=== PATIENT | female | born 1990 | race Caucasian/White ===

== ENCOUNTER 2017-08-04 08:51 | Emergency (ER) | payer OTHER ==
[2017-08-04] MEDS ORDERED: METOCLOPRAMIDE 5 MG/ML 2 ML VIAL IVP STA (09:14)
[2017-08-04] MEDS ORDERED: SODIUM CHLORIDE 0.9% 1,000 ML IV STA (09:14)
--- NOTE | 2017-08-04 09:27 | ED ---
General Adult HPI - General Chief complaint: Abdominal Pain Stated complaint: Right Side Pain, Vomiting Time Seen by Provider: 08/04/17 08:58 Source: patient, RN notes reviewed Mode of arrival: ambulatory Limitations: no limitations - History of Present Illness Initial comments: 26-year-old female presents emergency department with a chief complaint of right sided abdominal pain. Patient states she gets these sharp pains to the right side of her abdomen just randomly for the last week or so. Now she started to have nausea vomiting and some diarrhea. Patient states sometimes the pain will radiate up into her chest. Patient denies any back pain. There is been no fever chills that she is aware of. She denies any surgeries to the abdomen besides C-sections. Patient was concerned due to her continued discomfort so she thought that she should be evaluated. Patient denies any recent fever, chills, shortness of breath, chest pain, back pain, numbness or tingling, dysuria or hematuria, constipation or diarrhea, headaches or visual changes, or any other current symptoms. - Related Data Previous Rx's Medication Instructions Recorded Ondansetron Odt [Zofran ODT] 4 mg PO Q8HR PRN #20 tab 08/04/17 Allergies Allergy/AdvReac Type Severity Reaction Status Date / Time No Known Allergies Allergy Verified 08/04/17 08:57 Review of Systems ROS Statement: Those systems with pertinent positive or pertinent negative responses have been documented in the HPI. ROS Other: All systems not noted in ROS Statement are negative. Past Medical History Past Medical History: No Reported History Additional Past Medical History / Comment(s): Gest Diabetes History of Any Multi-Drug Resistant Organisms: None Reported Past Surgical History: Section Additional Past Surgical History / Comment(s): iud removal, LAPAROSCOPY AND RUPTURED UTERUS WITH REPAIR Past Anesthesia/Blood Transfusion Reactions: No Reported Reaction Past Psychological History: No Psychological Hx Reported Smoking Status: Never smoker Past Alcohol Use History: None Reported Past Drug Use History: None Reported General Exam - General Exam Comments Initial Comments: General: The patient is awake and alert, in no distress, and does not appear acutely ill. Eye: Pupils are equal, round and reactive to light, extra-ocular movements are intact; there is normal conjunctiva bilaterally. No signs of icterus. Ears, nose, mouth and throat: There are moist mucous membranes and no oral lesions. Neck: The neck is supple, there is no tenderness. Cardiovascular: There is a regular rate and rhythm. No murmur, rub or gallop is appreciated. Respiratory: Lungs are clear to auscultation, respirations are non-labored, breath sounds are equal. No wheezes, stridor, rales, or rhonchi. Gastrointestinal: Soft, non-distended, right-sided tenderness in the upper quadrant of the abdomen without masses or organomegaly noted. There is no rebound or guarding present. No CVA tenderness. Bowel sounds are unremarkable. Back: There is no tenderness to palpation in the midline. There is no obvious deformity. No rashes noted. Musculoskeletal: Normal ROM, no tenderness, There is no pedal edema. There is no calf tenderness or swelling. Sensation intact. Pulses equal bilaterally 2+. Neurological: CN II-XII intact, There are no obvious motor or sensory deficits. Coordination appears grossly intact. Speech is normal. Skin: Skin is warm and dry and no rashes or lesions are noted. Psychiatric: Cooperative, appropriate mood & affect, normal judgment. Limitations: no limitations Course Vital Signs 08/04/17 08/04/17 08:54 11:00 Temperature 99.2 F Pulse Rate 105 H 88 Respiratory 18 20 Rate Blood Pressure 130/78 117/57 O2 Sat by Pulse 100 99 Oximetry Medical Decision Making - Medical Decision Making 19-year-old female presents with right upper quadrant abdominal pain. This time ultrasound of the gallbladder and CAT scan are negative. At this time we discussed patient possibility etiologies for the symptoms. We did discuss that this could worsen and to return to this time we will discharge the patient home. We did discuss return parameters all patient's questions. He stated the Vinnie they're in agreement plan. They will be discharged - Lab Data Result diagrams: 08/04/17 09:08/04/17 09:09 Lab Results 08/04/17 08/04/17 08/04/17 Range/Units 09:09 09:09 09:35 WBC 15.1 H (3.8-10.6) k/uL RBC 4.87 (3.80-5.40) m/uL Hgb 14.5 (11.4-16.0) gm/dL Hct 40.5 (34.0-46.0) % MCV 83.2 (80.0-100.0) fL MCH 29.8 (25.0-35.0) pg MCHC 35.9 (31.0-37.0) g/dL RDW 12.3 (11.5-15.5) % Plt Count 418 (150-450) k/uL Neutrophils % 85 % Lymphocytes % 11 % Monocytes % 3 % Eosinophils % 0 % Basophils % 0 % Neutrophils # 12.8 H (1.3-7.7) k/uL Lymphocytes # 1.7 (1.0-4.8) k/uL Monocytes # 0.4 (0-1.0) k/uL Eosinophils # 0.1 (0-0.7) k/uL Basophils # 0.1 (0-0.2) k/uL Sodium 140 (137-145) mmol/L Potassium 4.3 (3.5-5.1) mmol/L Chloride 105 (98-107) mmol/L Carbon Dioxide 24 (22-30) mmol/L Anion Gap 11 mmol/L BUN 11 (7-17) mg/dL Creatinine 0.76 (0.52-1.04) mg/dL Est GFR (MDRD) Af Amer >60 (>60 ml/min/1.73 sqM) Est GFR (MDRD) Non-Af >60 (>60 ml/min/1.73 sqM) Glucose 90 (74-99) mg/dL Calcium 9.8 (8.4-10.2) mg/dL Total Bilirubin 0.6 (0.2-1.3) mg/dL AST 28 (14-36) U/L ALT 29 (9-52) U/L Alkaline Phosphatase 34 L (38-126) U/L Total Protein 7.7 (6.3-8.2) g/dL Albumin 5.0 (3.5-5.0) g/dL Amylase 64 (30-110) U/L Lipase 39 (23-300) U/L Urine Color Colorless Urine Appearance Clear (Clear) Urine pH 7.5 (5.0-8.0) Ur Specific [place] 1.004 (1.001-1.035) Urine Protein Negative (Negative) Urine Glucose (UA) Negative (Negative) Urine Ketones Negative (Negative) Urine Blood Negative (Negative) Urine Nitrite Negative (Negative) Urine Bilirubin Negative (Negative) Urine Urobilinogen <2.0 (<2.0) mg/dL Ur Leukocyte Esterase Negative (Negative) - Radiology Data Radiology results: report reviewed, image reviewed Disposition Clinical Impression: Abdominal pain Disposition: HOME SELF-CARE Condition: Stable Instructions: Abdominal Pain (ED) Additional Instructions: Please use medication as discussed. Please follow up with family doctor if symptoms have not improved over the next two days. Please return to the emergency room if your symptoms increase or worsen or for any other concerns. Prescriptions: Ondansetron Odt [Zofran ODT] 4 mg PO Q8HR PRN #20 tab PRN Reason: Nausea Referrals: Garrett Hess MD [Primary Care Provider] - 1-2 days Time of Disposition: 12:31
[2017-08-04 09:31] LABS: Basophils # (A) 0.1 k/uL (0-0.2); Basophils % (A) 0 %; CH 30.4; CHCM 36.7; Eosinophils # (A) 0.1 k/uL (0-0.7); Eosinophils % (A) 0 %; HCT 40.5 % (34.0-46.0); HGB 14.5 gm/dL (11.4-16.0); Luc # (Auto) 0.09; Luc % (Auto) 1; Lymphocytes # (A) 1.7 k/uL (1.0-4.8); Lymphocytes % (A) 11 %; MCH 29.8 pg (25.0-35.0); MCHC 35.9 g/dL (31.0-37.0); MCV 83.2 fL (80.0-100.0); Mean Platelet Volume 6.6; Monocytes # (A) 0.4 k/uL (0-1.0); Monocytes % (A) 3 %; Neutrophils # (A) 12.8 k/uL (1.3-7.7); Neutrophils % (A) 85 %; RBC 4.87 m/uL (3.80-5.40); RDW 12.3 % (11.5-15.5); WBC 15.1 k/uL (3.8-10.6); WBC (Perox) 15.09
[2017-08-04 09:36] LABS: ALT 29 U/L (9-52); AST 28 U/L (14-36); Alkaline Phosphatase 34 U/L (38-126); Amylase 64 U/L (30-110); Anion Gap 11 mmol/L; Blood Urea Nitrogen 11 mg/dL (7-17); Calcium 9.8 mg/dL (8.4-10.2); Carbon Dioxide 24 mmol/L (22-30); Chloride 105 mmol/L (98-107); Glucose 90 mg/dL (74-99); Non-African American GFR(MDRD) >60 (>60 ml/min/1.73 sqM); Potassium 4.3 mmol/L (3.5-5.1); Sodium 140 mmol/L (137-145); Total Bilirubin 0.6 mg/dL (0.2-1.3); Total Protein 7.7 g/dL (6.3-8.2)
[2017-08-04 10:17] LABS: Appearance,Urine Clear (Clear); Bilirubin,Urine Negative (Negative); Glucose,Urine (UA) Negative (Negative); Ketones,Urine Negative (Negative); Leukocyte Esterase,Urine Negative (Negative); Nitrite,Urine Negative (Negative); PH, Urine 7.5 (5.0-8.0); Protein,Urine Negative (Negative); Specific Gravity,Urine 1.004 (1.001-1.035); UA Billing (MACRO vs. MICRO) CHEM; Urobilinogen,Urine <2.0 mg/dL (<2.0)
--- NOTE | 2017-08-04 10:23 | XR ---
EXAMINATION TYPE: XR abdomen 2V , 2 VIEWS DATE OF EXAM ORDERED: 08/04/2017 HISTORY: Pain. COMPARISON: None. FINDINGS: There is a levoscoliosis in the lumbar spine. The abdominal gas pattern is within normal limits. There is no evidence of obstruction or free air. T here are phleboliths in the pelvis. There has been a previous tubal ligation. IMPRESSION: NO ACUTE INTRA-ABDOMINAL ABNORMALITY.
--- NOTE | 2017-08-04 10:40 | US ---
EXAMINATION TYPE: US gallbladder DATE OF EXAM: 08/04/2017 COMPARISON: Previous study dated 05/12/2016 CLINICAL HISTORY: RUQ Pain intermittent for approximately 1 week with new onset of n/v/d. EXAM MEASUREMENTS: Liver Length: 16.1 cm Gallbladder Wall: 0.2 cm CBD: 0.3 cm Right Kidney: 10.2 x 3.4 x 5.5 cm Limited due to bowel gas. Pancreas: wnl Liver: wnl Gallbladder: wnl Evidence for sonographic Bush's sign: No CBD: wnl Right Kidney: wnl The pancreas is unremarkable. The liver is normal in size without biliary dilatation. The gallbladder is normal without cholelithiasis. The gallbladder wall measures 2 mm. The distal comm on hepatic duct measures 3 mm. Right kidney is normal. IMPRESSION: NORMAL RIGHT UPPER QUADRANT ULTRASOUND.
[2017-08-04] MEDS ORDERED: RX INFO: IV CONTRAST WAS GIVEN 1 EACH MISC MISCELLANE PRN (10:43)
[2017-08-04 11:24] VITALS: RESP 20
--- NOTE | 2017-08-04 12:06 | CT ---
EXAMINATION TYPE: CT abdomen pelvis w con DATE OF EXAM: 08/04/2017 REFERENCE: NONE HISTORY: Pain HISTORY: Right sided abdominal pain, vomiting REFERENCE: Previous study dated 11/08/2013. CT DLP: 336.60 mGy Automated exposure control for dose reduction was used. TECHNIQUE: Helical acquisition through the abdomen and pelvis was obtained following the oral ingesti on of without Oral Contrast and following intravenous administration of 100 ml mL of Omnipaque 300. T he data was reformatted in axial, coronal and sagittal projections. FINDINGS: Visualized portions of the lungs are clear. There is no pleural or pericardial fluid. The heart is not enlarged. Within the abdomen, the liver, spleen and gallbladder are normal. Both adrenal glands are normal. Both kidneys demonstrate function and appear morphologically normal. The pancreas appears unremarkable. There is no significant retroperitoneal, iliac or inguinal adenopathy. Tubal ligation clips are in place. There is follicular change in both ovaries. The endometrial stripe measures 11.5 mm. There is no significant diverticular change and there is no evidence of diverticulitis. The appendix is normal. Small bowel loops are normal. No free air is seen. There is a scant amount of free fluid within the pelvis. There is a unilateral left-sided spondylolysis at L5 without significant spondylolisthesis of L5 on S 1. IMPRESSION: 1. NO ACUTE INFLAMMATORY ABNORMALITY. 2. NORMAL APPENDIX. 3. UNILATERAL LEFT-SIDED SPONDYLOLYSIS AT L5 WITHOUT SIGNIFICANT SPONDYLOLISTHESIS.
[2017-08-04 12:42] VITALS: BP 115/54; PULSE 81; TEMP 99.1
== END 2017-08-04 12:42 | disposition home or self-care (01) ==
LOC: EC 08:51
DX: R10.11 Right upper quadrant pain (principal); R11.2 Nausea with vomiting, unspecified; R19.7 Diarrhea, unspecified
CPT/HCPCS: 36415; 80053; 82150; 83690; 85025; 81003; 74020; 76705; 74177; 99284; 96374; 96361; J2765; Q9967

== ENCOUNTER → 2018-04-08 | Outpatient (CLI) | payer BC ==
--- NOTE | 2018-04-09 08:04 | EST ---
EXERCISE STRESS DATE OF SERVICE: 04/08/2018 AGE: 27 SEX: Female HT: 61" WT: 116 pounds PROTOCOL: Warren STAGE: IV DURATION OF EXERCISE: 13 minutes HEART RATE REST: 90 BLOOD PRESSURE REST: 137/92 MAXIMUM HEART RATE ACHIEVED: 186 MAXIMUM BLOOD PRESSURE: 151/79 85% MPHR: 163 100% MPHR: 192 METS: 13.5 INDICATION OF THE STUDY: Chest pain. CLINICAL INFORMATION: STRESS DATA: Pretesting physical examination showed a heart rate of 90, pressure is 137/92 mmHg. Baseline EKG showed sinus mechanism. The patient exercised on the treadmill according to Warren protocol for a total of 13 minutes and achieved 13.5 METs. Max heart rate was 186, which is about 96% of maximum predicted heart rate. Maximum blood pressure was 151/79 mmHg. Clinically, patient did not have any symptoms of chest pain or discomfort during the testing or in the recovery and the EKG did not show any significant ST or T-wave abnormalities consistent with ischemia. CONCLUSIONS: 1. Excellent exercise capacity. 2. Normal EKG in response to exercise. 3. Normal stress test for the patient. MMODL / IJN: [id number] /
== END | disposition home or self-care (01) ==
LOC: RADNMMAIN 11:03
PROVIDERS: ATTEND Family Medicine
DX: R00.2 Palpitations (principal)
CPT/HCPCS: 93017

== ENCOUNTER 2018-08-17 12:26 | Emergency (ER) | payer BC ==
[2018-08-17 12:39] VITALS: RESP 16
[2018-08-17] MEDS ORDERED: ACETAMINOPHEN TAB 500 MG TAB PO STA (12:58)
[2018-08-17] MEDS ORDERED: CYCLOBENZAPRINE 10 MG TAB PO STA (12:58)
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
[2018-08-17 15:01] VITALS: BP 126/60; PULSE 73; TEMP 98.9
== END 2018-08-17 15:01 | disposition home or self-care (01) ==
LOC: EC 12:26
DX: S16.1XXA Strain of muscle, fascia and tendon at neck level, initial encounter (principal); R07.89 Other chest pain; V43.52XA Car driver injured in collision with other type car in traffic accident, initial encounter; Y92.410 Unspecified street and highway as the place of occurrence of the external cause
CPT/HCPCS: 70450; 71045; 72125; 99285

== ENCOUNTER 2019-06-13 14:11 | Emergency (ER) | payer BC, OTHER ==
[2019-06-13 14:39] VITALS: RESP 18; TEMP 98.6
[2019-06-13] MEDS ORDERED: SODIUM CHLORIDE 0.9% 2,000 ML IV STA (14:47)
[2019-06-13 15:20] VITALS: PULSE 66
--- NOTE | 2019-06-13 15:25 | ED ---
Abdominal Pain HPI - General Chief Complaint: Abdominal Pain Stated Complaint: Abd pain/vomiting Time Seen by Provider: 06/13/19 14:44 Source: patient, RN notes reviewed, old records reviewed Mode of arrival: ambulatory Limitations: no limitations - History of Present Illness Initial Comments: Is a 28-year-old female presents emergency department today with 3 days of nausea and vomiting. She denies any bloody stools. She states her body hurts and she feels as if she is dehydrated. Patient states that she has had no specific abdominal pain. Denies any history of sick contacts. Patient states that she thinks that she has a "stomach bug." Patient denies any recent fever, chills, shortness of breath, chest pain, back pain, abdominal pain, numbness or tingling, dysuria or hematuria, constipation or diarrhea, headaches or visual changes, or any other current symptoms - Related Data Previous Rx's Medication Instructions Recorded Ondansetron Odt [Zofran ODT] 4 mg PO Q8HR PRN #20 tab 08/04/17 Cyclobenzaprine [Flexeril] 10 mg PO TID #10 tab 08/17/18 Metoclopramide [Reglan] 10 mg PO TID #15 tab 06/13/19 Allergies Allergy/AdvReac Type Severity Reaction Status Date / Time No Known Allergies Allergy Verified 06/13/19 14:36 Review of Systems ROS Statement: Those systems with pertinent positive or pertinent negative responses have been documented in the HPI. ROS Other: All systems not noted in ROS Statement are negative. Past Medical History Past Medical History: No Reported History Additional Past Medical History / Comment(s): Gest Diabetes History of Any Multi-Drug Resistant Organisms: None Reported Past Surgical History: Section Additional Past Surgical History / Comment(s): iud removal, LAPAROSCOPY AND RUPTURED UTERUS WITH REPAIR Past Anesthesia/Blood Transfusion Reactions: No Reported Reaction Past Psychological History: No Psychological Hx Reported Smoking Status: Never smoker Past Alcohol Use History: None Reported Past Drug Use History: None Reported General Exam - General Exam Comments Initial Comments: Pleasant 28-year-old female. Alert and oriented 3. No significant distress. Limitations: no limitations General appearance: alert, in no apparent distress Head exam: Present: atraumatic, normocephalic, normal inspection Eye exam: Present: normal appearance, PERRL, EOMI. Absent: scleral icterus, conjunctival injection, periorbital swelling ENT exam: Present: normal exam, mucous membranes moist Neck exam: Present: normal inspection Respiratory exam: Present: normal lung sounds bilaterally. Absent: respiratory distress, wheezes, rales, rhonchi, stridor Cardiovascular Exam: Absent: normal rhythm GI/Abdominal exam: Present: soft, normal bowel sounds. Absent: distended, tenderness, guarding, rebound, rigid Extremities exam: Present: normal inspection, full ROM, normal capillary refill. Absent: tenderness, pedal edema, joint swelling, calf tenderness Back exam: Present: normal inspection Neurological exam: Present: alert, oriented X3, CN II-XII intact Course Vital Signs 06/13/19 06/13/19 06/13/19 14:36 15:15 16:31 Temperature 98.6 F Pulse Rate 93 66 66 Respiratory 18 18 18 Rate Blood Pressure 105/73 110/71 107/65 O2 Sat by Pulse 98 99 99 Oximetry 06/13/19 17:04 Temperature 98.6 F Pulse Rate 66 Respiratory 18 Rate Blood Pressure 122/85 O2 Sat by Pulse 99 Oximetry Medical Decision Making - Medical Decision Making 28-year-old female presents with 32 days of nausea and vomiting started for dehydration. Patient is given IV fluids, 2 L bolus. Patient's states she does feel better on reevaluation. Patient's labs were reviewed and unremarkable. KUB shows normal Bowel gas pattern. Patient advised likely viral gastroenteritis. I discussed to return if she had any fever or specific areas of abdominal pain. Patient received treatment plan will comply. Return parameters were discussed. - Lab Data Result diagrams: 06/13/19 15:15 06/13/19 15:15 Lab Results 06/13/19 06/13/19 06/13/19 Range/Units 15:15 15:15 15:15 WBC 5.2 (3.8-10.6) k/uL RBC 4.67 (3.80-5.40) m/uL Hgb 14.1 (11.4-16.0) gm/dL Hct 39.9 (34.0-46.0) % MCV 85.4 (80.0-100.0) fL MCH 30.1 (25.0-35.0) pg MCHC 35.3 (31.0-37.0) g/dL RDW 14.1 (11.5-15.5) % Plt Count 243 (150-450) k/uL Neutrophils % 83 % Lymphocytes % 12 % Monocytes % 3 % Eosinophils % 1 % Basophils % 0 % Neutrophils # 4.3 (1.3-7.7) k/uL Lymphocytes # 0.6 L (1.0-4.8) k/uL Monocytes # 0.2 (0-1.0) k/uL Eosinophils # 0.1 (0-0.7) k/uL Basophils # 0.0 (0-0.2) k/uL PT 10.2 (9.0-12.0) sec INR 1.0 (<1.2) APTT 24.4 (22.0-30.0) sec Sodium 138 (137-145) mmol/L Potassium 4.2 (3.5-5.1) mmol/L Chloride 103 (98-107) mmol/L Carbon Dioxide 26 (22-30) mmol/L Anion Gap 9 mmol/L BUN 10 (7-17) mg/dL Creatinine 0.93 (0.52-1.04) mg/dL Est GFR (CKD-EPI)AfAm >90 (>60 ml/min/1.73 sqM) Est GFR (CKD-EPI)NonAf 84 (>60 ml/min/1.73 sqM) Glucose 106 H (74-99) mg/dL Calcium 8.9 (8.4-10.2) mg/dL Total Bilirubin 0.4 (0.2-1.3) mg/dL AST 27 (14-36) U/L ALT 22 (9-52) U/L Alkaline Phosphatase 38 (38-126) U/L Total Protein 6.8 (6.3-8.2) g/dL Albumin 4.1 (3.5-5.0) g/dL Amylase 57 (30-110) U/L Lipase 135 (23-300) U/L Urine Color Urine Appearance (Clear) Urine pH (5.0-8.0) Ur Specific [place] (1.001-1.035) Urine Protein (Negative) Urine Glucose (UA) (Negative) Urine Ketones (Negative) Urine Blood (Negative) Urine Nitrite (Negative) Urine Bilirubin (Negative) Urine Urobilinogen (<2.0) mg/dL Ur Leukocyte Esterase (Negative) Urine RBC (0-5) /hpf Urine WBC (0-5) /hpf Ur Squamous Epith Cells (0-4) /hpf Amorphous Sediment (None) /hpf Urine Bacteria (None) /hpf Urine Mucus (None) /hpf Urine HCG, Qual (Not Detectd) 06/13/19 06/13/19 Range/Units 15:15 15:15 WBC (3.8-10.6) k/uL RBC (3.80-5.40) m/uL Hgb (11.4-16.0) gm/dL Hct (34.0-46.0) % MCV (80.0-100.0) fL MCH (25.0-35.0) pg MCHC (31.0-37.0) g/dL RDW (11.5-15.5) % Plt Count (150-450) k/uL Neutrophils % % Lymphocytes % % Monocytes % % Eosinophils % % Basophils % % Neutrophils # (1.3-7.7) k/uL Lymphocytes # (1.0-4.8) k/uL Monocytes # (0-1.0) k/uL Eosinophils # (0-0.7) k/uL Basophils # (0-0.2) k/uL PT (9.0-12.0) sec INR (<1.2) APTT (22.0-30.0) sec Sodium (137-145) mmol/L Potassium (3.5-5.1) mmol/L Chloride (98-107) mmol/L Carbon Dioxide (22-30) mmol/L Anion Gap mmol/L BUN (7-17) mg/dL Creatinine (0.52-1.04) mg/dL Est GFR (CKD-EPI)AfAm (>60 ml/min/1.73 sqM) Est GFR (CKD-EPI)NonAf (>60 ml/min/1.73 sqM) Glucose (74-99) mg/dL Calcium (8.4-10.2) mg/dL Total Bilirubin (0.2-1.3) mg/dL AST (14-36) U/L ALT (9-52) U/L Alkaline Phosphatase (38-126) U/L Total Protein (6.3-8.2) g/dL Albumin (3.5-5.0) g/dL Amylase (30-110) U/L Lipase (23-300) U/L Urine Color Yellow Urine Appearance Cloudy H (Clear) Urine pH 6.0 (5.0-8.0) Ur Specific [place] 1.019 (1.001-1.035) Urine Protein Trace H (Negative) Urine Glucose (UA) Negative (Negative) Urine Ketones Negative (Negative) Urine Blood Moderate H (Negative) Urine Nitrite Negative (Negative) Urine Bilirubin Negative (Negative) Urine Urobilinogen <2.0 (<2.0) mg/dL Ur Leukocyte Esterase Negative (Negative) Urine RBC 1 (0-5) /hpf Urine WBC 3 (0-5) /hpf Ur Squamous Epith Cells 9 H (0-4) /hpf Amorphous Sediment Occasional H (None) /hpf Urine Bacteria Rare H (None) /hpf Urine Mucus Few H (None) /hpf Urine HCG, Qual Not Detected (Not Detectd) - Radiology Data Radiology results: report reviewed KUB shows on starting bowel gas pattern. Disposition Clinical Impression: Gastroenteritis, Dehydration Disposition: HOME SELF-CARE Condition: Good Instructions (If sedation given, give patient instructions): Dehydration (ED) Additional Instructions: Patient advised of close follow-up with primary care doctor. Return to the emergency department if any alarming signs or symptoms occur. Prescriptions: Metoclopramide [Reglan] 10 mg PO TID #15 tab Is patient prescribed a controlled substance at d/c from ED?: No Referrals: Garrett Hess MD [Primary Care Provider] - 1-2 days Time of Disposition: 16:41
[2019-06-13 15:27] LABS: ALT 22 U/L (9-52); AST 27 U/L (14-36); African American GFR (CKD) >90 (>60 ml/min/1.73 sqM); Albumin 4.1 g/dL (3.5-5.0); Alkaline Phosphatase 38 U/L (38-126); Amylase 57 U/L (30-110); Anion Gap 9 mmol/L; Blood Urea Nitrogen 10 mg/dL (7-17); Calcium 8.9 mg/dL (8.4-10.2); Carbon Dioxide 26 mmol/L (22-30); Chloride 103 mmol/L (98-107); Glucose 106 mg/dL (74-99); Potassium 4.2 mmol/L (3.5-5.1); Sodium 138 mmol/L (137-145); Total Bilirubin 0.4 mg/dL (0.2-1.3); Total Protein 6.8 g/dL (6.3-8.2)
[2019-06-13 15:29] LABS: Partial Thromboplastin Time 24.4 sec (22.0-30.0); Prothrombin Time 10.2 sec (9.0-12.0)
[2019-06-13 15:40] LABS: Basophils % (A) 0 %; Eosinophils # (A) 0.1 k/uL (0-0.7); Eosinophils % (A) 1 %; HCT 39.9 % (34.0-46.0); HGB 14.1 gm/dL (11.4-16.0); Lymphocytes # (A) 0.6 k/uL (1.0-4.8); Lymphocytes % (A) 12 %; MCH 30.1 pg (25.0-35.0); MCHC 35.3 g/dL (31.0-37.0); MCV 85.4 fL (80.0-100.0); Mean Platelet Volume 6.6; Monocytes # (A) 0.2 k/uL (0-1.0); Monocytes % (A) 3 %; Neutrophils # (A) 4.3 k/uL (1.3-7.7); Neutrophils % (A) 83 %; Platelet Count 243 k/uL (150-450); RBC 4.67 m/uL (3.80-5.40); RDW 14.1 % (11.5-15.5); WBC 5.2 k/uL (3.8-10.6)
[2019-06-13 15:47] LABS: Amorphous Sediment,Urine Occasional /hpf; Appearance,Urine Cloudy (Clear); Bacteria,Urine Rare /hpf; Bilirubin,Urine Negative (Negative); Blood,Urine Moderate (Negative); Color,Urine Yellow; Glucose,Urine (UA) Negative (Negative); Ketones,Urine Negative (Negative); Leukocyte Esterase,Urine Negative (Negative); Mucus,Urine Few /hpf; Nitrite,Urine Negative (Negative); Protein,Urine Trace (Negative); RBC,Urine 1 /hpf (0-5); Specific Gravity,Urine 1.019 (1.001-1.035); Squamous Epithelial Cell,Urine 9 /hpf (0-4); Urobilinogen,Urine <2.0 mg/dL (<2.0); WBC,Urine 3 /hpf (0-5)
--- NOTE | 2019-06-13 15:58 | XR ---
EXAMINATION TYPE: XR KUB DATE OF EXAM: 06/13/2019 COMPARISON: NONE HISTORY: Pain TECHNIQUE: Single supine KUB image of the abdomen is obtained FINDINGS: Small bowel demonstrates no evidence for dilatation or air fluid levels. Gas and fecal material is seen in non-distended colon. No convincing evidence for pneumoperitoneum. No unusual calcifications. The lung bases are clear. The osseous structures are intact. IMPRESSION: 1. Overall nonobstructive bowel gas pattern.
[2019-06-13 17:04] VITALS: BP 122/85
== END 2019-06-13 17:04 | disposition home or self-care (01) ==
LOC: EC 14:11
DX: E86.0 Dehydration (principal); K52.9 Noninfective gastroenteritis and colitis, unspecified
CPT/HCPCS: 36415; 74018; 80053; 81001; 81025; 82150; 83690; 85025; 85610; 85730; 96360; 96361; 99284

== ENCOUNTER → 2020-06-03 | Outpatient (CLI) | payer OTHER, BC | END | disposition home or self-care (01) | LOC: LABMAIN 21:11 | PROVIDERS: ATTEND Family Medicine | DX: Z03.818 Encounter for observation for suspected exposure to other biological agents ruled out (principal) ==

== ENCOUNTER → 2021-06-09 | Outpatient (CLI) | payer BC ==
--- NOTE | 2021-06-10 18:28 | CT ---
EXAMINATION TYPE: CT abdomen pelvis w con DATE OF EXAM: 06/09/2021 COMPARISON: 08/04/2017 INDICATION: RLQ pain for several months DLP: 441.80 mGycm, Automated exposure control for dose reduction was used. CONTRAST: 100 mL of Isovue 300. Study performed with Oral Contrast TECHNIQUE: Axial images were obtained from above the diaphragm to the pubic rami in the axial plane a t 5 mm thick sections. Reconstructed images are reviewed on the computer in the coronal plane. FINDINGS: Limited CT sections are obtained the lung bases. The lung bases are clear. CT ABDOMEN: Liver: Normal Spleen: Normal Pancreas: Normal Adrenal glands: The adrenal glands are normal. Gallbladder: Normal Kidneys: No masses are evident. No hydronephrosis is present. No cysts are present. Delayed images were obtained through the kidneys, which remain unremarkable. Aorta: Normal Inferior vena cava: Normal. CT PELVIS: Loops of bowel within the abdomen and pelvis are normal. There are loops of bowel which are incom pletely distended or lack oral contrast limiting their evaluation. Appendix: Not identified. No dilated tubular structure is evident. No obvious inflammatory change is evident. This is somewhat limited due to lack of intra-abdominal fat. Urinary bladder: Normal. Genitourinary structures: There is a 1.9 cm right ovarian cyst. The uterus appears normal. Left adnex a is clear. No free fluid is within the pelvis. Osseous structures: No suspicious lytic or sclerotic lesions. IMPRESSIONS: 1. 1.9 cm right ovarian cyst. This could be followed with ultrasound 6 weeks or following the next n ormal menstrual period. 2. No suspicious abnormality to account for chronic right lower quadrant pain.
== END | disposition home or self-care (01) ==
LOC: RADCTMAIN 14:56
PROVIDERS: ATTEND Family Medicine
DX: N83.201 Unspecified ovarian cyst, right side (principal)
CPT/HCPCS: 74177; Q9967

== ENCOUNTER → 2021-06-17 | Outpatient (CLI) | payer BC ==
[2021-06-17 09:03] LABS: Basophils % (A) 0 %; Eosinophils # (A) 0.1 k/uL (0-0.7); Eosinophils % (A) 1 %; HCT 37.7 % (34.0-46.0); HGB 13.4 gm/dL (11.4-16.0); Lymphocytes # (A) 2.9 k/uL (1.0-4.8); Lymphocytes % (A) 32 %; MCH 31.4 pg (25.0-35.0); MCHC 35.4 g/dL (31.0-37.0); MCV 88.8 fL (80.0-100.0); Monocytes # (A) 0.5 k/uL (0-1.0); Monocytes % (A) 6 %; Neutrophils # (A) 5.3 k/uL (1.3-7.7); Neutrophils % (A) 59 %; Platelet Count 378 k/uL (150-450); RBC 4.25 m/uL (3.80-5.40); RDW 13.1 % (11.5-15.5); WBC 8.9 k/uL (3.8-10.6)
== END | disposition home or self-care (01) ==
LOC: LABPAT 06:55
PROVIDERS: ATTEND Obstetrics & Gynecology
DX: Z01.812 Encounter for preprocedural laboratory examination (principal); N84.0 Polyp of corpus uteri
CPT/HCPCS: 36415; 85025

== ENCOUNTER 2021-06-20 09:53 | Day surgery (SDC) | payer BC ==
[2021-06-16 12:06] VITALS: BMI 23.6
[~2021-06-20 09:53] MED LIST: DEXAMETHASONE SOD PHOSPHATE 4 MG/ML 1 ML VIAL IV ONE; LACTATED RINGERS 1,000 ML IV SCH; MIDAZOLAM 2 MG/2 ML VIAL IV PRN; ONDANSETRON 4 MG/2 ML VIAL IVP ONE; Pre Op ABX Message 1 EACH MISC MISCELLANE ONE; SCOPOLAMINE 1.5MG/72HR PATCH TRANSDERM ONE
[2021-06-20] MEDS ORDERED: LACTATED RINGERS 1,000 ML IV ONE ×2 (10:07→14:00)
[2021-06-20] MEDS ORDERED: LIDOCAINE 1% INJ 10MG/ML (20 ML MDV) ONE (12:13)
[2021-06-20] MEDS ORDERED: PROPOFOL 10 MG/ML 20 ML VIAL IV ONE (12:13)
[2021-06-20] MEDS ORDERED: KETOROLAC 15 MG/ML 1 ML VIAL ONE (12:13)
[2021-06-20] MEDS ORDERED: fentaNYL (PF) 50 MCG/ML 2 ML AMP ONE (12:13)
[2021-06-20] MEDS ORDERED: MIDAZOLAM 2 MG/2 ML VIAL ONE (12:13)
--- NOTE | 2021-06-20 12:49 | P.OP ---
Date of Procedure: 06/20/21 Preoperative Diagnosis: Endometrial polyp Postoperative Diagnosis: Same Procedure(s) Performed: Hysteroscopy, D&C, polypectomy Anesthesia: PEGGY Surgeon: Viktoriya Donaldson Estimated Blood Loss (ml): 10 IV fluids (ml): 400 Urine output (ml): 300 Pathology: other (Endometrial curettings and polyp) Condition: stable Disposition: PACU Description of Procedure: Patient is brought to the operating suite where a general anesthetic is admini stered without difficulty. She's placed in the dorsal lithotomy position. The appropriate timeout is performed to assure proper patient and procedural identification. Urine hCG is negative. Antibiotics are not deemed necessary. The cervix, vagina, and perineal bodies are all prepped and draped in usual sterile fashion. Examination under anesthesia reveals a small anteverted uterus, negative adnexa bilaterally. Bladder is drained for approximately 300 mL of clear yellow urine. Weighted speculum was placed into the vagina. Anterior lip of the cervix is grasped with a double-tooth tenaculums. The uterus sounds to a depth of 9 cm in the anteverted position. Cervix is gently and systematically dilated using Hanks dilators. Hysteroscope was introduced and fluid is infused into the cavity to distend the xavier. Examination of the endometrial cavity does reveal what appears to be shaggy tissue and polyps. Hysteroscope was removed. A sharp medium curette is used and on a Telfa pad the intrauterine curettings are obtained. This does contain what appears to be polypoid tissue. When the cavity is completely clear, the hysteroscope is reintroduced and again the cavity is infused with saline. The xavier appear negative. No additional fibroids polyps or tumors are noted. Instrumentation is removed from the cervix. All sponge needle and enhancement counts are correct. Cervix is clean and dry.. Pad is placed. Patient is brought back to recovery room in very good condition with stable vital signs including blood pressure 110/62, pulse 58, 100% O2 saturation. Toradol is given prior to leaving the operative room. Patient will follow-up with me in the office in 2 weeks.
[2021-06-20] MEDS: HYDROmorphone 0.5 MG/0.5 ML SYRINGE IVP PRN ×2 (13:01→13:21)
[2021-06-20 13:12] VITALS: TEMP 97.3
[2021-06-20 13:46] VITALS: RESP 16
[2021-06-20 14:23] VITALS: BP 108/78; PULSE 69
== END 2021-06-20 14:38 | disposition home or self-care (01) ==
LOC: OR 09:53
PROVIDERS: ATTEND Obstetrics & Gynecology
DX: N84.0 Polyp of corpus uteri (principal); N85.4 Malposition of uterus; E06.3 Autoimmune thyroiditis; Z98.891 History of uterine scar from previous surgery; Z98.51 Tubal ligation status; Z98.890 Other specified postprocedural states; Z82.49 Family history of ischemic heart disease and other diseases of the circulatory system; Z80.3 Family history of malignant neoplasm of breast
CPT/HCPCS: 81025; 88305; 58558; J2250; J1100; J2405; J2001; J3010; J1885; J2704; J1170

== ENCOUNTER → 2022-08-17 | Outpatient (CLI) | payer OTHER ==
--- NOTE | 2022-08-17 09:26 | XR ---
EXAMINATION TYPE: XR wrist complete RT DATE OF EXAM: 08/17/2022 COMPARISON: None HISTORY: Wrist pain TECHNIQUE: 4 view right wrist FINDINGS: No acute fracture or dislocation is evident. Joint spaces are preserved. Soft tissues appea r normal. If there is pain at the anatomic snuff box, nuclear medicine bone scan could be performed for additio nal evaluation. MRI could be performed if additional evaluation of soft tissues would be of benefit. IMPRESSION: 1. No acute osseous abnormality right wrist.
--- NOTE | 2022-08-17 09:27 | XR ---
EXAMINATION TYPE: XR forearm RT DATE OF EXAM: 08/17/2022 COMPARISON: None HISTORY: Pain TECHNIQUE: 2 view right forearm FINDINGS: Radius and ulna appear intact. No acute fracture or dislocation is evident. Soft tissues ap pear normal. Joint spaces appear preserved. Follow up exams can be performed 7-10 days from acute trauma for continued pain. IMPRESSION: 1. No acute osseous abnormality right forearm.
--- NOTE | 2022-08-17 09:29 | XR ---
EXAMINATION TYPE: XR lumbosacral spine min 4V DATE OF EXAM: 08/17/2022 COMPARISON: CT 06/09/2021 HISTORY: Pain TECHNIQUE: 3 view lumbar spine FINDINGS: There is a thoracolumbar scoliosis, present previously. Convexity is to the left centered a t L1. The L3-L5 pedicles appear intact. L1 and L2 pedicles are poorly visualized due to rotoscoliosis . Disc heights appear preserved. Vertebral body heights are preserved. IMPRESSION: 1. No acute osseous abnormality lumbar spine.
== END | disposition home or self-care (01) ==
LOC: RADXRMAIN 08:53
PROVIDERS: ATTEND Emergency Medicine
DX: M25.531 Pain in right wrist (principal); M79.631 Pain in right forearm; M54.50 Low back pain, unspecified
CPT/HCPCS: 72100

== ENCOUNTER 2023-07-30 17:37 | Emergency (ER) | payer BC ==
[2023-07-30] MEDS ORDERED: SODIUM CHLORIDE 0.9% 1,000 ML IV STA (20:11)
[2023-07-30] MEDS ORDERED: ONDANSETRON 4 MG/2 ML VIAL IVP STA (20:11)
[2023-07-30] MEDS ORDERED: KETOROLAC 15 MG/ML 1 ML VIAL IVP STA (20:12)
--- NOTE | 2023-07-30 20:44 | ED ---
Nausea/Vomiting/Diarrhea HPI - General Chief complaint: Nausea/Vomiting/Diarrhea Stated complaint: vomiting Time Seen by Provider: 07/30/23 20:06 Source: patient, RN notes reviewed Mode of arrival: ambulatory Limitations: no limitations - History of Present Illness Initial comments: This is a 32 year old female who presents to the emergency department for nausea, vomiting, and diarrhea. Denies any associated abdominal pain. States that she has also been experiencing a sore throat and cough. She started to feel somewhat ill last night, however today symptoms got much worse. She has been unable to keep anything down. Denies any sick contacts. Denies any fevers, chills, dyspnea, chest pain, palpitations, abdominal pain, back pain, or headaches. MD complaint: nausea, vomiting, diarrhea - Related Data Previous Rx's Medication Instructions Recorded Ondansetron Odt [Zofran Odt] 4 mg PO Q8HR PRN #30 tab 07/30/23 Allergies Allergy/AdvReac Type Severity Reaction Status Date / Time No Known Allergies Allergy Verified 07/30/23 18:09 Review of Systems ROS Statement: Those systems with pertinent positive or pertinent negative responses have been documented in the HPI. ROS Other: All systems not noted in ROS Statement are negative. Past Medical History Past Medical History: No Reported History Additional Past Medical History / Comment(s): Gest Diabetes History of Any Multi-Drug Resistant Organisms: None Reported Past Surgical History: Section Additional Past Surgical History / Comment(s): iud removal, LAPAROSCOPY AND RUPTURED UTERUS WITH REPAIR Past Anesthesia/Blood Transfusion Reactions: No Reported Reaction Past Psychological History: No Psychological Hx Reported Smoking Status: Never smoker Past Alcohol Use History: None Reported Past Drug Use History: None Reported General Exam Limitations: no limitations General appearance: alert, in no apparent distress Head exam: Present: atraumatic, normocephalic, normal inspection Respiratory exam: Present: normal lung sounds bilaterally. Absent: respiratory distress, wheezes, rales, rhonchi, stridor Cardiovascular Exam: Present: regular rate, normal rhythm, normal heart sounds. Absent: systolic murmur, diastolic murmur, rubs, gallop, clicks Neurological exam: Present: alert, oriented X3, CN II-XII intact Psychiatric exam: Present: normal affect, normal mood Skin exam: Present: warm, dry, intact, normal color. Absent: rash Course Vital Signs 07/30/23 07/30/23 07/30/23 18:03 20:15 22:55 Temperature 98.1 F 98.0 F 98.8 F Pulse Rate 110 H 70 84 Respiratory 22 18 16 Rate Blood Pressure 126/86 128/79 108/69 O2 Sat by Pulse 98 100 99 Oximetry Medical Decision Making - Medical Decision Making This is a 32 year old female who presents to the emergency department for na usea, vomiting, and a sore throat. Was pt. sent in by a medical professional or institution? @ -No Did you speak to anyone other than the patient for history? @ -No Did you review nursing and triage notes? @ -Yes, and I agree, it is accurate with regards to the patient's symptoms. Were old charts reviewed? @ -No Differential Diagnosis? @ -Differential Nausea and Vomiting: Gastroenteritis, cholecystitis, appendicitis, pancreatitis, migraine, benign positional vertigo, food borne illness, pyelonephritis, irritable bowel syndrome, influenza, Covid, GERD, incarcerated hernia, intestinal obstruction, this is not meant to be an all-inclusive list. EKG interpreted by me (3pts min.)? @ -Not obtained X-rays interpreted by me (1pt min.)? @ -Not obtained CT interpreted by me (1pt min.)? @ -Not obtained U/S interpreted by me (1pt. min.)? @ -Not obtained What testing was considered but not performed? (CT, X-rays, U/S, labs)? Why? @ -None What meds were considered but not given? Why? @ -None Did you discuss the management of the patient with other professionals? @ -No Did you reconcile home meds? @ -No Was smoking cessation discussed for >3mins.? @ -No Was critical care preformed (if so, how long)? @ -No Were there social determinants of health that impacted care today? How? (Margret elessness, low income, unemployed, alcoholism, drug addiction, transportation, low edu. Level, literacy, decrease access to med. care, prison, rehab)? @ -No Was there de-escalation of care discussed even if they declined? (Discuss DNR or withdrawal of care, Hospice)? @ -No What co-morbidities impacted this encounter? (DM, HTN, Smoking, COPD, CAD, Cancer, CVA, Hep., AIDS, mental health diagnosis, sleep apnea, morbid obesity)? @ -None Was patient admitted / discharged? @ -Discharged. Lab work obtained and found to be nonactionable. Rapid strep test negative. Patient initially treated with IV fluids, Zofran, and Toradol. Her symptoms did improve, however she still felt mildly nauseous. She was subsequently given a dose of Reglan. The Reglan helped the nausea, but made her very anxious. This side effect was treated with Ativan. She was tolerating fluid intake and overall felt much better and stable for discharge home. Advised that her symptoms are most likely viral in nature. Rx for Zofran provided with dosing instructions reviewed. Advised she slowly advance her diet as tolerated and remain well hydrated. Undiagnosed new problem with uncertain prognosis? @ -None Drug Therapy requiring intensive monitoring for toxicity (Heparin, Nitro, Insulin, Cardizem)? @ -None Were any procedures done? @ -None Diagnosis/symptom? @ -Nausea and vomiting, pharyngitis Acute, or Chronic, or Acute on Chronic? @ -Acute Uncomplicated (without systemic symptoms) or Complicated (systemic symptoms)? @ -Uncomplicated Side effects of treatment? @ -None Exacerbation, Progression, or Severe Exacerbation] @ -Not applicable Poses a threat to life or bodily function? @ -No Return precautions reviewed in depth, the patient is instructed to return to the emergency department with any new, worsening, or concerning symptoms. Patient verbalized understanding. This case was discussed in detail with the attending ED physician, Dr. Donnelly. Presentation, findings, and treatment plan discussed in detail as well. - Lab Data Result diagrams: 07/30/23 20:27 07/30/23 20:27 Lab Results 07/30/23 07/30/23 07/30/23 Range/Units 20:27 20:27 20:27 WBC 6.9 (3.8-10.6) k/uL RBC 4.37 (3.80-5.40) m/uL Hgb 13.5 (11.4-16.0) gm/dL Hct 39.6 (34.0-46.0) % MCV 90.6 (80.0-100.0) fL MCH 30.9 (25.0-35.0) pg MCHC 34.1 (31.0-37.0) g/dL RDW 12.5 (11.5-15.5) % Plt Count 358 (150-450) k/uL MPV 7.0 Neutrophils % 72 % Lymphocytes % 20 % Monocytes % 6 % Eosinophils % 1 % Basophils % 0 % Neutrophils # 5.0 (1.3-7.7) k/uL Lymphocytes # 1.4 (1.0-4.8) k/uL Monocytes # 0.4 (0-1.0) k/uL Eosinophils # 0.0 (0-0.7) k/uL Basophils # 0.0 (0-0.2) k/uL Sodium (137-145) mmol/L Potassium (3.5-5.1) mmol/L Chloride (98-107) mmol/L Carbon Dioxide (22-30) mmol/L Anion Gap mmol/L BUN (7-17) mg/dL Creatinine (0.52-1.04) mg/dL Est GFR (CKD-EPI)AfAm (>60 ml/min/1.73 sqM) Est GFR (CKD-EPI)NonAf (>60 ml/min/1.73 sqM) Glucose (74-99) mg/dL Calcium (8.4-10.2) mg/dL Total Bilirubin (0.2-1.3) mg/dL AST (14-36) U/L ALT (4-34) U/L Alkaline Phosphatase (38-126) U/L Total Protein (6.3-8.2) g/dL Albumin (3.5-5.0) g/dL Amylase (30-110) U/L Lipase (23-300) U/L HCG, Qual Influenza Type A (PCR) Not Detected (Not Detectd) Influenza Type B (PCR) Not Detected (Not Detectd) RSV (PCR) Not Detected (Not Detectd) SARS-CoV-2 (PCR) Not Detected (Not Detectd) Group A Strep (PCR) NOT DETECTED (Not Detectd) 07/30/23 Range/Units 20:27 WBC (3.8-10.6) k/uL RBC (3.80-5.40) m/uL Hgb (11.4-16.0) gm/dL Hct (34.0-46.0) % MCV (80.0-100.0) fL MCH (25.0-35.0) pg MCHC (31.0-37.0) g/dL RDW (11.5-15.5) % Plt Count (150-450) k/uL MPV Neutrophils % % Lymphocytes % % Monocytes % % Eosinophils % % Basophils % % Neutrophils # (1.3-7.7) k/uL Lymphocytes # (1.0-4.8) k/uL Monocytes # (0-1.0) k/uL Eosinophils # (0-0.7) k/uL Basophils # (0-0.2) k/uL Sodium 135 L (137-145) mmol/L Potassium 4.1 (3.5-5.1) mmol/L Chloride 103 (98-107) mmol/L Carbon Dioxide 24 (22-30) mmol/L Anion Gap 8 mmol/L BUN 8 (7-17) mg/dL Creatinine 0.63 (0.52-1.04) mg/dL Est GFR (CKD-EPI)AfAm >90 (>60 ml/min/1.73 sqM) Est GFR (CKD-EPI)NonAf >90 (>60 ml/min/1.73 sqM) Glucose 81 (74-99) mg/dL Calcium 9.2 (8.4-10.2) mg/dL Total Bilirubin 0.5 (0.2-1.3) mg/dL AST 35 (14-36) U/L ALT 18 (4-34) U/L Alkaline Phosphatase 46 (38-126) U/L Total Protein 7.1 (6.3-8.2) g/dL Albumin 4.3 (3.5-5.0) g/dL Amylase 60 (30-110) U/L Lipase 62 (23-300) U/L HCG, Qual Not Detected Influenza Type A (PCR) (Not Detectd) Influenza Type B (PCR) (Not Detectd) RSV (PCR) (Not Detectd) SARS-CoV-2 (PCR) (Not Detectd) Group A Strep (PCR) (Not Detectd) Disposition Clinical Impression: Nausea and vomiting, Pharyngitis Disposition: HOME SELF-CARE Instructions (If sedation given, give patient instructions): Acute Nausea and Vomiting (ED) Additional Instructions: Return to the emergency department with any new, worsening, or concerning symptoms. You can take the Zofran up to every 8 hours as needed for nausea and vomiting. I did also send in the Reglan by mistake. I did cancel this order, however if the pharmacy still fills this for you, do not pick it up, as this is the medication that made you anxious. You tolerated the Zofran fine without any problems. Slowly advance your diet as tolerated and remain well-hydrated. Follow up with your primary care provider in 1-2 days. Prescriptions: Ondansetron Odt [Zofran Odt] 4 mg PO Q8HR PRN #30 tab PRN Reason: Nausea And Vomiting Is patient prescribed a controlled substance at d/c from ED?: No Referrals: Garrett Hess MD [Primary Care Provider] - 1-2 days
[2023-07-30 21:07] LABS: Basophils % (A) 0 %; Eosinophils % (A) 1 %; HCT 39.6 % (34.0-46.0); HGB 13.5 gm/dL (11.4-16.0); Lymphocytes # (A) 1.4 k/uL (1.0-4.8); Lymphocytes % (A) 20 %; MCH 30.9 pg (25.0-35.0); MCHC 34.1 g/dL (31.0-37.0); MCV 90.6 fL (80.0-100.0); Monocytes # (A) 0.4 k/uL (0-1.0); Monocytes % (A) 6 %; Neutrophils % (A) 72 %; Platelet Count 358 k/uL (150-450); RBC 4.37 m/uL (3.80-5.40); RDW 12.5 % (11.5-15.5); WBC 6.9 k/uL (3.8-10.6)
[2023-07-30] MEDS ORDERED: METOCLOPRAMIDE 5 MG/ML 2 ML VIAL IVP STA (21:09)
[2023-07-30 21:20] LABS: ALT 18 U/L (4-34); AST 35 U/L (14-36); African American GFR (CKD) >90 (>60 ml/min/1.73 sqM); Albumin 4.3 g/dL (3.5-5.0); Alkaline Phosphatase 46 U/L (38-126); Amylase 60 U/L (30-110); Anion Gap 8 mmol/L; Blood Urea Nitrogen 8 mg/dL (7-17); Calcium 9.2 mg/dL (8.4-10.2); Carbon Dioxide 24 mmol/L (22-30); Chloride 103 mmol/L (98-107); Glucose 81 mg/dL (74-99); Lipase 62 U/L (23-300); Non-African American GFR(CKD) >90 (>60 ml/min/1.73 sqM); Potassium 4.1 mmol/L (3.5-5.1); Sodium 135 mmol/L (137-145); Total Bilirubin 0.5 mg/dL (0.2-1.3); Total Protein 7.1 g/dL (6.3-8.2)
[2023-07-30 21:21] LABS: HCG,Qualitative Serum Not Detected
[2023-07-30] MEDS ORDERED: LORazepam 2 MG/ML INJ IV STA (21:45)
[2023-07-30] MEDS ORDERED: ONDANSETRON 4 MG ODT STARTER PACK 2 TAB BTL PO STA (22:07)
[2023-07-30] MEDS ORDERED: DEXAMETHASONE SOD PHOSPHATE 10 MG/ML 1 ML VIAL IVP STA (22:07)
[2023-07-30 22:57] VITALS: BP 108/69; PULSE 84; RESP 16; TEMP 98.8
== END 2023-07-30 22:55 | disposition home or self-care (01) ==
LOC: EC 17:37
DX: R11.2 Nausea with vomiting, unspecified (principal); J02.9 Acute pharyngitis, unspecified; Z20.822 Contact with and (suspected) exposure to COVID-19
CPT/HCPCS: 36415; 87651; 80053; 82150; 83690; 85025; 84703; 87636; 99284; 96374; 96375 ×4; 96361 ×2; J2060; J1100; J2765; J2405; J1885; S0119

== ENCOUNTER → 2025-03-21 | Outpatient (CLI) | payer BC ==
[2025-03-22 06:29] LABS: Basophils # (A) 0.08 X 10*3/uL (0.00-0.10); Basophils % (A) 1.7 %; Eosinophils # (A) 0.04 X 10*3/uL (0.04-0.35); Eosinophils % (A) 0.9 %; HGB 13.9 g/dL (12.0-15.0); Lymphocytes # (A) 1.67 X 10*3/uL (0.90-5.00); Lymphocytes % (A) 36.2 %; MCH 30.2 pg (27.0-32.0); MCHC 33.9 g/dL (32.0-37.0); MCV 89.1 FL (80.0-97.0); Mean Platelet Volume 9.2 FL (9.5-12.2); Monocytes # (A) 0.44 X 10*3/uL (0.20-1.00); Monocytes % (A) 9.5 %; NRBC Per 100 WBC 0 X 10*3/uL (0.00-0.01); Neutrophils # (A) 2.36 X 10*3/uL (1.80-7.70); Neutrophils % (A) 51.3 %; Platelet Count 418 X 10*3/uL (140-440); RDW 12.2 % (11.5-14.5); WBC 4.61 X 10*3/uL (4.50-10.00)
== END | disposition home or self-care (01) ==
LOC: LABWHC1 11:27
PROVIDERS: ATTEND Obstetrics & Gynecology Obstetrics
DX: Z01.812 Encounter for preprocedural laboratory examination (principal); N92.0 Excessive and frequent menstruation with regular cycle
CPT/HCPCS: 85025